=== PATIENT | female | born 2000 | race Caucasian/White ===

== ENCOUNTER 2018-11-30 20:31 | Emergency (ER) | payer MEDICAID ==
[~2018-11-30] VITALS: Ht 170.2 cm; Wt 49.0 kg
[2018-11-30 20:40] VITALS: BP 115/75
--- NOTE | 2018-11-30 20:40 | NUR ---
ED Nurse Note: patient walked into ED c/o hives located on her bottom legs, patient states that she first noticed the redness 2 days ago, patient has taken benadryl however has found no relief, unknown if a bug did bite her, patient is alert and oriented x4, ambulatory with a steady gait, VSS
[2018-11-30] MEDS ORDERED: ZITHROMAX250 MG ORAL (21:19)
[2018-11-30] MEDS ORDERED: BENADRYL25 MG ORAL (21:19)
[2018-11-30] MEDS ORDERED: PREDNISONE20 MG ORAL (21:19)
--- NOTE | 2018-11-30 21:19 | Emergency Room Report ---
History of Present Illness General Chief Complaint: Skin Rash/Abscess Source: Patient Present Illness HPI This is a 18-year-old female with no past medical history she presents with 2 complaints. The first complaint is possible allergic reaction. 2 days ago at work she noticed some itching to her lower extremity. Has not gotten any better. Swelling seem to be getting worse. Denies any fever chills but no nausea no vomiting. A day later she also developed some sore throat. Worse with swallowing. No cough or congestion. No fever. Pain is 8 out of 10. Better with rest. Better with fluid. Allergies: Coded Allergies: No Known Allergies (Unverified , 11/30/18) Patient History Past Medical History: see triage record, old chart reviewed Past Surgical History: none Pertinent Family History: none Social History: Denies: smoking Last Menstrual Period: 11/29/18 Now: No Immunizations: other Reviewed Nursing Documentation: PMH: Agreed; PSxH: Agreed Nursing Documentation-PMH Past Medical History: No History, Except For Hx Asthma: Yes Review of Systems Eye: Denies: eye pain, blurred vision ENT: Reports: throat pain; Denies: ear pain, nose congestion, throat swelling Respiratory: Denies: cough, shortness of breath Cardiovascular: Denies: chest pain, palpitations Gastrointestinal: Denies: abdominal pain, diarrhea, nausea, vomiting Musculoskeletal: Denies: back pain, joint pain Skin: Reports: rash Neurological: Denies: headache, numbness Endocrine: Denies: increased thirst, increased urine Hematologic/Lymphatic: Denies: easy bruising All Other Systems: negative except mentioned in HPI Physical Exam Vital Signs Date Time Temp Pulse Resp B/P (MAP) Pulse Ox O2 Delivery O2 Flow Rate FiO2 11/30/18 20:36 98.6 98 18 115/75 (88) 97 Room Air Vitals normal Sp02 EP Interpretation: reviewed, normal General Appearance: well appearing, no apparent distress, alert Head: normocephalic, atraumatic Eyes: bilateral eye PERRL, bilateral eye EOMI ENT: hearing grossly normal, tonsillar swelling, pharyngeal erythema Neck: full range of motion, supple, no meningismus Respiratory: chest non-tender, lungs clear, normal breath sounds Cardiovascular #1: regular rate, rhythm, no murmur Gastrointestinal: normal bowel sounds, non tender, no mass, no organomegaly, no bruit, non-distended Musculoskeletal: back normal, gait/station normal, normal range of motion Neurologic: alert, oriented x3 Psychiatric: mood/affect normal Skin: rash - Urticarial rash to lower extremity bilaterally Medical Decision Making Diagnostic Impression: Primary Impression: Pharyngitis, acute Qualified Codes: J02.9 - Acute pharyngitis, unspecified Additional Impression: Allergic reaction Qualified Codes: T78.40XA - Allergy, unspecified, initial encounter ER Course Presents with sore throat. May be viral versus strep. We will put on on antibiotics. No evidence of peritonsillar abscess, retropharyngeal abscess or Augustin angina. Lower extremity look like allergic reaction. Unknown etiology. No evidence of any abscess or necrotizing fasciitis. No anaphylaxis. Will discharge home. Last Vital Signs Date Time Temp Pulse Resp B/P (MAP) Pulse Ox O2 Delivery O2 Flow Rate FiO2 11/30/18 20:40 98.6 98 18 115/75 97 Room Air Status: improved Disposition: HOME, SELF-CARE Condition: Stable Scripts Diphenhydramine Hcl* (BENADRYL*) 25 Mg Capsule 50 MG ORAL Q6H PRN for Itching, #30 CAP Prov: Cam Bell MD 11/30/18 Prednisone* (PREDNISONE*) 20 Mg Tablet 40 MG ORAL DAILY, #8 TAB Prov: Cam Bell MD 11/30/18 Azithromycin* (ZITHROMAX*) 250 Mg Tablet 250 MG ORAL DAILY, #6 TAB 0 Refills Take two tables once daily for 1 day, then one tablet once daily for 4 days. Prov: Cam Bell MD 11/30/18 Additional Instructions: Increase fluids. Salt water gargle. Follow-up with your doctor in 7 days. Return if worse. Cam Bell MD Nov 30, 2018 21:19
[2018-11-30 21:31] VITALS: BP 115/75
--- NOTE | 2018-11-30 21:32 | NUR ---
ED Nurse Note: Pt cleared by health care Provider for discharge. DC instructions/prescription was given and explained to pt and verbalized understanding of teachings. All medical deviecs such as ID band removed. Pt is AAO x4, ambulatory and left with all personal belongings.
== END 2018-11-30 21:32 | disposition home or self-care (01) ==
LOC: EMR 20:50
DX: J02.9 Acute pharyngitis, unspecified (principal); T78.40XA Allergy, unspecified, initial encounter; J45.909 Unspecified asthma, uncomplicated
CPT/HCPCS: J7512; Z7502; 99282